=== PATIENT | female | born 1960 | race Caucasian/White ===

== ENCOUNTER 2024-07-05 08:40 | Outpatient (CLI) | payer BC | END 2024-07-05 08:41 | disposition home or self-care (01) | LOC: CSHSLEEP 08:40 | PROVIDERS: ATTEND Otolaryngology Plastic Surgery within the Head & Neck | DX: G47.33 Obstructive sleep apnea (adult) (pediatric) (principal); R06.83 Snoring | CPT/HCPCS: 95811 ==

== ENCOUNTER 2024-08-21 08:22 | Outpatient (CLI) | payer BC ==
[2024-08-21] MEDS ORDERED: Iopamidol 300 61% 100 ML VIAL FS ONE (11:12)
== END 2024-08-21 08:23 | disposition home or self-care (01) ==
LOC: CSHCT 08:22
PROVIDERS: ATTEND Physician Assistant Medical
DX: K52.9 Noninfective gastroenteritis and colitis, unspecified (principal); K76.0 Fatty (change of) liver, not elsewhere classified; M06.9 Rheumatoid arthritis, unspecified; K63.9 Disease of intestine, unspecified
CPT/HCPCS: 36415; 74177; 82565